=== PATIENT | male | born 1950 | race Caucasian/White ===

== ENCOUNTER 2020-07-09 22:26 | Emergency (ER) | payer MEDICARE, OTHER ==
[~2020-07-09] VITALS: Ht 170.2 cm; Wt 74.8 kg
[~2020-07-09 22:26] MED LIST: ALLEGRA ALLERG180 MG PO; ASPIR 8181 MG PO; CALCIUM 600 +1 EAC1 PO; CARDURA8 MG PO; CENTRUM SILVER1 EAC2 PO; CENTRUM SILVER1 EAC4; CIALIS10 MG PO; CITRACAL + D C1 EACH; GINKGO BILOBA500 MG; HYDROCHLOROTHIA25 M1 PO; LISINOPRIL10 MG PO; LOVASTAT20 PO; METROGEL55 GM; NITROGLYCERIN0.4 MG SUBLING; OMEGA-3 + VITA1 EAC1; OMEGA-3 + VITA1 EAC2 PO; PLAVIX 75 MG TA75 M1 PO; SUPER B COMPLE1 EAC2 PO; TOBREX5 ML OPHTHALMIC; VITAMIN E400 UNIT PO; VITAMINC500 PO
[2020-07-09] MEDS ORDERED: ZETIA10 MG PO (22:53)
[2020-07-10 00:36] VITALS: BP 178/93
== END 2020-07-10 00:37 | disposition home or self-care (01) ==
LOC: M.ERS 22:26
DX: U07.1 COVID-19 (principal); I10 Essential (primary) hypertension; E78.5 Hyperlipidemia, unspecified; Z79.899 Other long term (current) drug therapy; Z79.82 Long term (current) use of aspirin

== ENCOUNTER → 2020-10-13 | Outpatient (CLI) | payer OTHER ==
[~2020-10-13] MED LIST changes: +ZETIA10 MG PO
== END ==
LOC: M.ULTRA 13:00
PROVIDERS: ATTEND Family Medicine
DX: N44.2 Benign cyst of testis (principal); N50.3 Cyst of epididymis; I86.1 Scrotal varices; N43.3 Hydrocele, unspecified

== ENCOUNTER → 2020-12-01 | Outpatient (CLI) | payer OTHER ==
[~2020-12-01] MED LIST changes: +CLARITIN10 M3 PO; +CO Q-10-VIT E-1 EACH PO; +LIPITOR 20 MG T20 M1 PO; +MAGNESIUM250 M1 PO; +MELATONIN3 M1 PO; +METAMUCIL1 EAC1 PO; +POTASSIUM99 M1 PO
--- NOTE | 2020-12-02 16:29 | CARDNUC ---
[place] [address] CARDIAC NUCLEAR IMAGING REPORT Name: MARLYN HAYES Room: [facility]#: [id number] Admission: 12/01/20 Attend Phys: Elton Irizarry, Discharge: Date of : 54 Date of Service: 12/02/20 1629 Report #: [id number] THIS REPORT FOR: cc: Claude Garibay MD, Matthew W. MD Liston, Michael J. MD [facility] ~ APPROVED REPORT Imaging Protocol: Rest Tc-99m/Stress Tc-99m 1 day Study performed: 12/01/2020 09:45:00 Indication: chest pain, left sided tightness, dyspnea. Patient Location: Out-Patient Stress Tech: Xi Blackburn Stress Nurse: Winnie Figueroa RN NM Tech:ALLEY Herrera Ht: 5 ft 7 in Wt: 168 lbs BSA: 1.88 m2 BMI: 26.30 Medical History Medical History: Left sided chest tightness, dyspnea, RUTH/CPAP, atherosclerotic heart disease, Covid -2019, CAD s/p stent, HTN, Hyperlipidemia, FHX CAD. Medications: ASA 81 Mg, Atorvastatin, Zetia, NTG, Magnesium , K+, Cialis. Allergies: No known drug allergies Cardiac Risk Factors: Age, FHX of CAD, HTN, Hyperlipidemia, SOB, atherosclerotic heart disease. Previous Cardiac Procedures: PCI Pretest Chest Pain Characteristics: No chest pain Exercise History: Physically active Physical Disabilities: None noted Meds Held (24 hrs): NTG, Cialis. Resting Data Rest SPECT myocardial perfusion imaging was performed in supine position 30 minutes following the intravenous injection of 11.1 mCi of Tc-99m Sestamibi. Time of rest injection: 1000 Date: 12/01/2020 The images were gated to evaluate regional wall motion and calculate left ventricular ejection fraction. Administration Route: IV Administration Site: [place] [address] CARDIAC NUCLEAR IMAGING REPORT Name: MARLYN HAYES Room: [facility]#: [id number] Admission: 12/01/20 Attend Phys: Elton Irizarry, Discharge: Date of : 54 Date of Service: 12/02/20 1629 Report #: [id number] Exercise Stress At peak stress, the patient was injected intravenously with 29.8mCi of Tc-99m Sestamibi. Time of stress injection: 1200 Date: 12/01/2020 Administration Route: IV Administration Site: Right AC Gated Stress SPECT was performed 30 minutes after stress injection. The images were gated to evaluate regional wall motion and calculate left ventricular ejection fraction. Prone imaging was performed. Stress Test Details Stress Test: Pharmacologic stress testing performed using 0.4 mg of regadenoson per 5 mL given IV over 10 seconds. HR Max Heart Rate (APMHR): 152 bpm Resting HR: 58 bpm Target HR (85% APMHR): 129 bpm Max HR Achieved: 146 bpm % of APMHR: 96 Recovery HR: 80 bpm HR response to stress: Normal HR response to stress BP Resting BP: 184/108 mmHg Max BP: 213/103 mmHg Recovery BP: 163/99 mmHg BP response to stress: Abnormal hypertensive response to stress. ECG Resting ECG: Sinus Rhythm Stress ECG: Sinus Tachycardia ST Change: Downsloping ST depression Maximum ST Deviation: 1 mm Arrhythmia: None Recovery ECG: Sinus Rhythm Recovery ST Change: Downsloping ST depression Recovery ST Deviation: 1 mm Recovery Arrhythmia: None Clinical Reason for Termination: Completed protocol, Maximal effort, target HR achieved. Stress Symptoms: Dyspnea, leg fatigue/burn. Exercise duration: 10 min 00 [place] [address] CARDIAC NUCLEAR IMAGING REPORT Name: FREDDYMARLYN SILVINA Room: [facility]#: [id number] Admission: 12/01/20 Attend Phys: Elton Irizarry, Discharge: Date of : 54 Date of Service: 12/02/20 1629 Report #: [id number] Exercise capacity: 11.81 METs Overall Exercise Capacity for Age: Superior Functional Aerobic Impairment 96% The patient tolerated standard Glenn protocol exercise without significant cardiac complaint. Patient exhibited good exercise tolerance. Nurse Comments A 70 year old male presented for a treadmill nuclear stress test. Treadmill tolerated to stage 4, target HR achieved. Recovery unremarkable. Patient was stable and stated he felt good when escorted to Nuclear Medicine for imaging. Exercise capacity - Superior. Stress ECG Conclusion Baseline twelve-lead EKG shows sinus rhythm without significant ST segment abnormality. EKGs obtained during stress show sinus tachycardia with no significant ST segment changes when compared to baseline. EKGs in the recovery phase show downsloping ST segment depression with diffuse T wave inversion persisting 10 minutes into recovery. Study Quality Study: Good Artifact: Mild Diaphragmatic artifact Study Data At rest, the left ventricular ejection fraction was 63%.. Post stress, the left ventricular ejection was 71%.. TID = 0.98. Perfusion Perfusion images obtained in the supine position at rest and post stress show a moderate size moderate intensity defect of the basal inferior wall that does not resolve completely with post-rest prone imaging. The defect does not appear overtly reversible. Wall motion in this region appears preserved. Findings would suggest diaphragmatic attenuation artifact. No other significant fixed or reversible defects are identified. Wall Motion Normal left ventricular wall motion. Nuclear Conclusion ECG Findings: positive for ischemia Clinical Findings: [place] [address] CARDIAC NUCLEAR IMAGING REPORT Name: MARLYN HAYES Room: [facility]#: [id number] Admission: 12/01/20 Attend Phys: Elton Irizarry, Discharge: Date of : 54 Date of Service: 12/02/20 1629 Report #: [id number] Nuclear Findings: negative for ischemia Exercise Capacity: normal Left Ventricular Function: normal Risk Study: moderate Perfusion images show no obvious reversible defects to suggest ischemia. The basal inferior wall is not completely visualized due to diaphragmatic attenuation artifact. Global LV systolic function appears preserved. EKG changes noted could be consistent with ischemia versus hypertensive response to exercise. This is a moderate risk study. Clinical correlation recommended. <Conclusion> Baseline twelve-lead EKG shows sinus rhythm without significant ST segment abnormality. EKGs obtained during stress show sinus tachycardia with no significant ST segment changes when compared to baseline. EKGs in the recovery phase show downsloping ST segment depression with diffuse T wave inversion persisting 10 minutes into recovery. <ELECTRONICALLY SIGNED> By: Elton Irizarry MD, FACC 12/02/20 1629 1629 1629 Elton Irizarry MD, FACC /INF
== END ==
LOC: M.NUC 09:41
PROVIDERS: ATTEND Internal Medicine Cardiovascular Disease
DX: I25.10 Atherosclerotic heart disease of native coronary artery without angina pectoris (principal)

== ENCOUNTER → 2021-01-06 | Outpatient (CLI) | payer OTHER ==
[~2021-01-06] VITALS: Ht 170.2 cm; Wt 74.8 kg
[~2021-01-06] MED LIST changes: +CALCIUM + VIT1 EACH PO; +HYDRALAZINE 2525 M1 PO
[2021-01-06 12:43] LABS: HEMATOCRIT 48.9 % (42.0-52.0); HEMOGLOBIN 16.8 gm/dL (14.0-18.0); MCH 32.2 pg (26.0-34.0); MCHC 34.2 g/dL (28.0-37.0); MCV 94.1 fL (80.0-100.0); MPV 8.9 fl. (7.2-11.1); RBC 5.2 mil/uL (4.50-6.00); RDW-CV 12.6 % (10.5-14.5); WBC 7.9 thou/uL (4.0-11.0)
[2021-01-06 12:56] LABS: ANION GAP 8 mmol/L (7-16); BUN 23 mg/dL (7-18); CALCIUM 9.6 mg/dL (8.5-10.1); CHLORIDE 104 mmol/L (98-107); CO2 30 mmol/L (21-32); CREATININE 1.2 mg/dL (0.6-1.3); GLUCOSE 99 mg/dL (70-99); POTASSIUM 3.9 mmol/L (3.5-5.1); SODIUM 142 mmol/L (136-145)
[2021-01-06 12:59] LABS: APTT 26.3 Seconds (25.0-31.3); PROTIME 10.3 Seconds (9.20-11.50)
[2021-01-06 13:00] LABS: ALBUMIN 4.4 g/dL (3.4-5.0); ALKALINE PHOSPHATASE 84 U/L (46-116); CHOLESTEROL 175 mg/dL (<200); HDL CHOLESTEROL 48 mg/dL (>40); LDL CHOLESTEROL 99 mg/dL (<100); SGOT 32 U/L (15-37); SGPT 50 U/L (30-65); TC:HDL 3.6 Ratio (Not establshd); TOTAL BILIRUBIN 0.4 mg/dL (<0.1-1.0); TOTAL PROTEIN 7.8 g/dL (6.4-8.2); TRIGLYCERIDE 142 mg/dL (<150); VLDL 28 mg/dL (<40)
[2021-01-06 13:10] LABS: SERUM ASSESSMENT Clear
[2021-01-06 13:34] VITALS: BP 156/85
--- NOTE | 2021-01-06 16:23 | NUR ---
LHC WAS NOT DONE TODAY ON PATIENT.HE WAS RESCHEDULED FOR THE LHC IN 01/11/21
--- NOTE | 2021-01-06 16:34 | EKG ---
[place] [address] ELECTROCARDIOGRAM REPORT Name: MARLYN HAYES Room: [facility]#: [id number] Admission: 01/06/21 Attend Phys: Elton Irizarry, Discharge: Date of : 54 Date of Service: 01/06/21 1245 Report #: [id number] THIS REPORT FOR: //name// [facility] Test Date: 2021-01-06 Test Time: 12:45:56 Pat Name: MARLYN HAYES Department: Room: Gender: Abalone Fisherman: : 1950 Requested By: Elton Irizarry Order Number: [id number] Reading MD: Phoenix Rivera Measurements Intervals [place] Rate: 63 P: 44 WI: 173 QRS: -3 QRSD: 93 T: -4 QT: 419 QTc: 429 Interpretive Statements Sinus rhythm Ventricular premature complex Abnormal R-wave progression, early transition Left ventricular hypertrophy Borderline T abnormalities, inferior leads Compared to ECG 11/26/2014 08:41:44 Ventricular premature complex(es) now present T-wave abnormality now present Electronically Signed On 01-06-2021 16:34:36 CDT by Phoenix Rivera [email or web address] <ELECTRONICALLY SIGNED> By: Phoenix Rivera MD, [facility] 01/06/21 1634 1245 1245 Phoenix Rivera MD, [facility] /EPI
== END | disposition home or self-care (01) ==
LOC: M.CL 12:05
PROVIDERS: ATTEND Internal Medicine Cardiovascular Disease
DX: I25.10 Atherosclerotic heart disease of native coronary artery without angina pectoris (principal); Z53.8 Procedure and treatment not carried out for other reasons; I10 Essential (primary) hypertension; E78.5 Hyperlipidemia, unspecified; Z98.890 Other specified postprocedural states; Z79.899 Other long term (current) drug therapy; Z79.82 Long term (current) use of aspirin

== ENCOUNTER → 2021-01-18 | Outpatient (CLI) | payer OTHER ==
[~2021-01-18] VITALS: Ht 170.2 cm; Wt 75.7 kg
[2021-01-18 12:25] VITALS: BP 144/84
[2021-01-18 13:39] VITALS: BP 138/82
[2021-01-18 13:55] VITALS: BP 138/70
[2021-01-18 14:15] VITALS: BP 140/78
[2021-01-18 14:27] VITALS: BP 154/84
[2021-01-18 15:00] VITALS: BP 118/70
--- NOTE | 2021-01-19 17:14 | CARD ---
[address] [address] CARDIAC CATH REPORT Name: MARLYN HAYES Room: [facility].#: [id number] Admission: 01/18/21 Attend Phys: Elton Irizarry MD Discharge: Date of : 54 Report #: [id number] THIS REPORT FOR: cc: Claude Garibay MD, Matthew W. MD Liston, Michael J. MD [facility] ~ APPROVED REPORT Study performed: 01/18/2021 12:33:35 Patient Details Patient Status: Out-Patient Room #: The patient is a 70 year-old male Event Personnel Elton Irizarry Chief Engineer Production, Luz Valdovinos RN Link Wire Fabric Machine Tender, Yulisa Kimbrough RTR Monitor, Asad Pathak Scrub Procedures Performed Art Access - R femoral artery, Left Heart Cath w/or w/o Coronaries LHC, Hemostasis w/ Mynx Procedure Narrative The patient was brought electively to the Cardiac Catheterization Laboratory and was prepped and draped in a sterile manner. The right femoral was infiltrated with 2% Lidocaine subcutaneous anesthesia. IV conscious sedation was used throughout procedure with appropriate monitoring and was performed in the presence of a registered nurse who was an independent trained observer other than the physician performing the procedure. A 6fr Ultimum sheath was inserted into the right femoral artery. Coronary angiography was performed using coronary diagnostic catheters. The right coronary system was accessed and visualized with a 6F JR4 catheter. The left coronary system was accessed and visualized with a 6F JL4 catheter. The left ventricle was accessed and visualized with a 6F Pigtail catheter. Left ventricular/Aortic Valve gradient assessed via catheter pullback. Left ventriculogram was performed in GOSS projection. Pre-demployment femoral angiogram was performed . Closure device was deployed with a 6 Fr Mynx. The patient tolerated the procedure well and there were no complications associated with the procedure. There was no hematoma. Intraoperative Conscious Sedation Sedation start time: 12:59 Case end Time: [place] [address] CARDIAC CATH REPORT Name: MARLYN HAYES Room: [facility]#: [id number] Admission: 01/18/21 Attend Phys: Elton Irizarry MD Discharge: Date of : 54 Report #: [id number] 13:15 Fentanyl 50 mcg Versed 2 mg Fluoro Time: 1.6 minutes Dose: DAP 06994 cGycm2 1350 mGy Contrast Type and Amount: Visipaque 100 ml Diagnostic Cath Left Main The left main coronary artery has mild 10% plaquing proximally. The left main bifurcates into a left anterior descending and circumflex coronary artery. LAD The left inner descending coronary artery has mild 10% plaquing in its midportion. The remainder the vessel is free of significant disease. Diagonal 1 A large branch first diagonal branch is free of significant disease. Diagonal 2 A small in caliber second diagonal branch is normal. Circumflex The circumflex coronary artery has some mild 30% narrowing distally. The remainder the vessel is free of significant disease. OM1 A small caliber first obtuse marginal branch is normal. OM2 A small caliber second obtuse marginal branch and also normal. OM3 A large and branched third obtuse branch marginal is normal. L PDA A moderate-sized fourth obtuse marginal branch is normal. Right Coronary The right coronary artery has some mild 20% plaquing in its midportion. R PDA The PDA appears normal. RPLV A moderate-sized branch posterior lateral LV branch has 30% narrowing in a branch. Left Ventriculography The left ventricle is normal in size with normal contractility. The left ventricular ejection fraction is estimated to be 65%. Left ventricular wall motion abnormalities are not present. Hemodynamics The aortic pressure is 137/73 mmHg with a mean of 101 mmHg. The left ventricular pressure is 138/7 mmHg with a mean of mmHg. The left ventricular end diastolic pressure is 12 [place] [address] CARDIAC CATH REPORT Name: MARLYN HAYES Room: [facility]#: [id number] Admission: 01/18/21 Attend Phys: Elton Irizarry MD Discharge: Date of : 54 Report #: [id number] 1. Mild nonocclusive coronary artery disease as outlined above. 2. Normal left ventricular systolic function. 3. Normal left ventricular end-diastolic pressure. Recommendations 1. Continue medical management and aggressive risk factor modification. <ELECTRONICALLY SIGNED> By: Elton Irizarry MD, [facility] 01/19/211712 12 12Micdelilah Irizarry MD, FAC /INF
== END | disposition home or self-care (01) ==
LOC: M.CL 11:46 → M.ULTRA 13:00
PROVIDERS: ATTEND Internal Medicine Cardiovascular Disease
DX: R07.9 Chest pain, unspecified (principal); I25.10 Atherosclerotic heart disease of native coronary artery without angina pectoris; I10 Essential (primary) hypertension; E78.5 Hyperlipidemia, unspecified; Z98.890 Other specified postprocedural states; Z79.899 Other long term (current) drug therapy; Z79.82 Long term (current) use of aspirin; Z20.822 Contact with and (suspected) exposure to COVID-19

== ENCOUNTER → 2021-01-24 | Outpatient (CLI) | payer OTHER | LOC: M.ULTRA 13:46 | PROVIDERS: ATTEND Internal Medicine Cardiovascular Disease | DX: R59.9 Enlarged lymph nodes, unspecified (principal); R19.09 Other intra-abdominal and pelvic swelling, mass and lump; I25.10 Atherosclerotic heart disease of native coronary artery without angina pectoris; R10.31 Right lower quadrant pain ==

== ENCOUNTER → 2021-07-08 | Outpatient (CLI) | payer OTHER | LOC: M.ULTRA 06-30 13:02 | PROVIDERS: ATTEND Family Medicine | DX: R22.1 Localized swelling, mass and lump, neck (principal); R42 Dizziness and giddiness ==